=== PATIENT | female | born 2000 | race Caucasian/White ===

== ENCOUNTER 2019-02-15 13:11 | Emergency (ER) | payer OTHER ==
[~2019-02-15] VITALS: Ht 147.3 cm; Wt 50.8 kg
[2019-02-15] MEDS ORDERED: prenata (13:18)
[2019-02-15 15:16] LABS: ALBUMIN 3.6 GM/DL (3.2-5.2); ALT/SGPT 14 U/L (12-78); BILIRUBIN,TOTAL 0.9 MG/DL (0.2-1.0); BLOOD UREA NITROGEN 5 MG/DL (7-18); CALCIUM LEVEL 9.2 MG/DL (8.5-10.1); CARBON DIOXIDE LEVEL 24 MEQ/L (21-32); CHLORIDE LEVEL 105 MEQ/L (98-107); CREATININE FOR GFR 0.49 MG/DL (0.55-1.30); GLUCOSE, FASTING 79 MG/DL (70-100); POTASSIUM SERUM 3.6 MEQ/L (3.5-5.1); SODIUM LEVEL 138 MEQ/L (136-145); TOTAL PROTEIN 7.1 GM/DL (6.4-8.2)
--- NOTE | 2019-02-15 16:38 | REP ---
RENAL AND BLADDER ULTRASOUND: Real-time sonographic evaluation of the kidneys is performed. The kidneys are normal in size and echotexture, right kidney measuring 10.2 x 4.7 x 3.3 cm and left kidney 10.3 x 4.3 x 5.1 cm. There is no hydronephrosis or nephrolithiasis bilaterally. Urinary bladder is mildly distended with no gross abnormality. Ureteral jets could not be visualized with Doppler color evaluation. IMPRESSION: No hydronephrosis or nephrolithiasis identified. Electronically Signed by Reji Berger MD 02/16/2019 12:14 A
[2019-02-15] MEDS ORDERED: KEFL500C17 PO (16:54)
[2019-02-15 16:57] VITALS: BP 113/55
== END 2019-02-15 17:24 | disposition home or self-care (01) ==
LOC: M ED 13:11
DX: O23.42 Unspecified infection of urinary tract in pregnancy, second trimester (principal); Z3A.16 16 weeks gestation of pregnancy

== ENCOUNTER 2019-08-01 04:44 | Inpatient (IN) | payer OTHER ==
[~2019-08-01] VITALS: Ht 149.9 cm; Wt 62.6 kg
[2019-08-01] VITALS (21 sets, daily range): BP systolic 100–144; BP diastolic 52–85
[~2019-08-01 04:44] MED LIST: KEFL500C17 PO; prenata
[2019-08-01] MEDS ORDERED: FERR325T3 PO (05:16)
[2019-08-01] MEDS ORDERED: LACTATED RINGER'S 1000 ML IV STA (05:59)
[2019-08-01] MEDS ORDERED: BUTORPHANOL 2 MG/ML INJ (J0595) IV PRN (06:00)
[2019-08-01] MEDS ORDERED: PROMETHAZINE INJ 25 MG/ML VIAL (J2550) IV ONE ×2 (06:00→11:45)
[2019-08-01] MEDS ORDERED: MOM 30ML SUSPENSION UDC PO PRN (06:00)
[2019-08-01] MEDS ORDERED: SIMETHICONE 80 MG CHEW TAB PO PRN (06:00)
--- NOTE | 2019-08-01 06:16 | HPEPDOC ---
Obstetrical History & Physical General Date of Admission Aug 01, 2019 at 05:55 History of Present Illness Patient is a 19yo female at 40.3wks by LMP c/w 1st trimester US. C/o contra ctions q2-5minutes since midnight. No leakage of fluid. No bleeding. Good movement. Received RhoGam timely for Rh negative status. Chief Complaint: Contractions, term Information Provided By: Patient Care Care: Good Care Dating Final EDC: Jul 29, 2019 Final EDC by: LMP LMP: October 22, 2018 Antepartum Course Height (inches): 58 Pre- weight (lbs.): 105 Admission Weight (lbs.): 136.6 Change in Weight (lbs.): 31.6 Past Medical History Past Obstetrical History : Past Obstetrical History: [employer] History: No pertinent history Past Medical History Medical History None Surgical History: Denies/None Family History Significant Family History: No pertinent family hx (Dependent daughter) Social History Marital Status: Single Psychosocial History: No pertinent psych hx * Smoker: non-smoker Alcohol: Denies Drugs: denies Abuse Violence Screening Have you been hit/kicked/slapp: No Have you been sexually assault: No Imunizations Tdap status: current Influenza Status: current Allergies Coded Allergies: No Known Allergies (Unverified , 02/15/19) Medications Scheduled Cephalexin (Keflex) 500 Mg Capsule, 500 MG PO TID Miscellaneous Medications Ferrous Sulfate (Ferrous Sulfate) 325 Mg Tablet.dr, 325 MG PO [prenata] Physical Examination Physical Examination GENERAL: Alert and oriented times three. BREAST: . ABDOMEN: Gravid and non-tender to touch. FETUS: Is vertex (VTX) by sterile vaginal examination (SVE), fetus is EFW of 3500gm by Leopalds. HEART RATE: Regular rate and rhythm. LUNGS: Clear to auscultation (CTA). EXTREMITIES: +1 edema. Pertinent Laboratoy Data Blood Type: O- (Rhogam 05/06/19 given) RBC Antibody Screen: Negative HIV: Negative Hepatitis B: Negative Rapid Plasma Reagin: Nonreactive Varicella: Immune Chlamydia/Gonorrhea: Negative Group B Streptococcus: Negative Glucose Tolerance Test: 82 Anatomy Ultrasound Ultrasound Date: Mar 11, 2019 Placenta Location: Posterior Normal Anatomy: Yes Placenta Previa: No Estimated Weight (grams): 326 Steroid Therapy Steroid Therapy: No Vaginal Examination Dilation: 5 cm Effacement: 80% Station: 0 Cervical Consistency: Soft Cervical Position: Anterior Presentation: Cephalic presentation Position: Vertex (occiput) Assessment Variability: Moderate Accelerations: Positive Decelerations: None Tocometer Frequency: regular, every 1-3 min. Multi-drug resistant Organism: No history of MDRO Assessment/Plan Assessment Patient is a 19yo female at 40.3wks by LMP c/w 1st trimester US. Admit for active labor and expect delivery by . Pain management per patient preference, which was discussed with her. I discussed risks of with patient of failure with section, distress, bleeding, infection, , vaginal or perineal or neighboring organ tear. Currently, fetus is reassuring. GBS is negative, no need for antibiotics. Plan Admit and orient. Veneer Stapler and consent. Diet: clears. Group B Streptococcus (GBS) negative. Labs and intravenous (IV) per unit protocol. Lactated Ringers (LR): Bolus 500 mL, then at 125 mL/hr. Anticipate normal spontaneous delivery (). Pain management per patient desire. SW consult for dependent after delivery. Rosie Crouch MD Aug 01, 2019 06:16
[2019-08-01 06:29] LABS: BASO % 0.2 % (0.0-1.0); EOS # 0.1 10^3/uL (0.0-0.5); EOS % 0.7 % (0.0-3.0); HEMATOCRIT 36.2 % (36.0-47.0); HEMOGLOBIN 11.3 g/dl (12.0-15.5); LYMPH # 1.8 10^3/uL (1.5-5.0); LYMPH % 14.4 % (24.0-44.0); MEAN CORPUSCULAR HEMOGLOBIN 28.1 pg (27.0-33.0); MEAN CORPUSCULAR HGB CONC 31.2 g/dl (32.0-36.5); MONO # 0.7 10^3/uL (0.0-0.8); MONO % 5.6 % (0.0-5.0); NEUTROPHILS # 9.7 10^3/uL (1.5-8.5); NEUTROPHILS % 78.4 % (36.0-66.0); PLATELET COUNT, AUTOMATED 210 10^3/uL (150-450); RED BLOOD COUNT 4.02 10^6/uL (4.00-5.40); WHITE BLOOD COUNT 12.4 10^3/uL (4.0-10.0)
[2019-08-01] MEDS: LR 1,000 ML IV SCH ×2 (07:10→11:08)
--- NOTE | 2019-08-01 08:20 | IPNPDOC ---
Text Note Date of Service The patient was seen on 08/01/19. NOTE accept care: patient is a 19 yo G1 @ 40+3wks gestation admitted early this AM for labor with cervix at 5/80/0 and painful regular contraction. She is currently coping well with her contractions. GBS negative RH neg vitals: normal NAD fht: 135/mod hattie/pos accel/no decel toco: ctx q 3-4mins a/p patient in labor, likely still transitioning to active. Continue with int ermittent monitoring. encourage up an walking. recheck 6-8hrs from last check. augment as needed. Keyanna, VS,Shreebone, I+O VS, Fishbone, I+O Laboratory Tests 08/01/19 06:11 Vital Signs Date Time Temp Pulse Resp B/P (MAP) Pulse Ox O2 Delivery O2 Flow Rate FiO2 08/01/19 07:13 98.1 74 18 137/83 (101) 98 Room Air JOE AL DO Aug 01, 2019 08:20
[2019-08-01] MEDS ORDERED: NALBUPHINE HCL 10 MG/ML AMP (J2300) IM ONE (11:45)
[2019-08-01] MEDS ORDERED: NALBUPHINE HCL 10 MG/ML AMP (J2300) IV ONE ×2 (11:45→12:15)
[2019-08-01] MEDS ORDERED: FENTANYL 2MCG/ML ROPIVACAINE 0.2% IN 0.9% NACL 100ML IVBAG As Ordered ONE (17:42)
[2019-08-01] MEDS ORDERED: ePHEDrine SULFATE 25 MG/5 ML(5MG/ML) SYRINGE IV PRN (19:00)
[2019-08-01] MEDS ORDERED: EPIDURAL/PCA KEYS XX PRN (19:00)
[2019-08-01] MEDS ORDERED: REFRIGERATOR IV KEYS XX PRN (19:00)
[2019-08-01] MEDS ORDERED: ONDANSETRON 4MG/2ML VIAL (J2405) IV PRN (19:00)
[2019-08-01] MEDS ORDERED: EPIDURAL COMMENT XX SCH (19:00)
[2019-08-01] MEDS ORDERED: NALOXONE INJ 0.4 MG/1 ML VIAL (J2310) IV PRN (19:00)
[2019-08-01] MEDS ORDERED: FENTANYL/ROPIVACAINE/NACL BAG 100 ML EPIDURAL SCH (19:00)
[2019-08-01] MEDS ORDERED: diphenhydrAMINE INJ 50MG/ML VIAL (J1200) IV PRN (19:00)
[2019-08-01] MEDS ORDERED: OXYTOCIN 30 UNITS IN 0.9% NaCl 500ML IV BAG (J2590) As Ordered ONE (19:54)
--- NOTE | 2019-08-01 22:27 | DNPDOC ---
[facility] Delivery Note Delivery Note DATE OF DELIVERY: 08/01/2019 PREDELIVERY DIAGNOSIS: 40+3/7 weeks' gestation and labor. POST DELIVERY DIAGNOSIS: () PROCEDURE: Spontaneous vaginal delivery QUALITY ASSURANCE MANAGER: Dr. Jassi Briceño ANESTHESIA: epidural ESTIMATED BLOOD LOSS: 250mL. FINDINGS: 3200 gm, female , Score 8/9, nuchal cord x2, Left compound hand.. DELIVERY SUMMARY: With good maternal effort, baby delivered OA, restituted LOT. Double nuchal cord reduced. Anterior shoulder delivered, left compound hand delivered with posterior shoulder. Body followed with ease. Baby placed on maternal abdomen. Cord allowed to stop pulsating. Cord clamped x 2 and cut by FOB. Pitocin bolus started. Cord blood collected per routine. Placenta delivered spontaneously. Fundus massaged firmed. Inspection revealed 1st degree midline laceration and right vaginal tear repaired with 3-0 vicryl interrupted stitch. EBL 250cc. baby and mother bonding when I left the room. DO SERVANDO Briceño LUAT N. DO Aug 01, 2019 22:27
[2019-08-01] MEDS ORDERED: OXYTOCIN DRIP 30 UNITS in IV 1 EA IV SCH (23:13)
[2019-08-01] MEDS ORDERED: RHOGAM 300 MCG (1500 IU) INJ (J2790) IM SCH (23:15)
[2019-08-01] MEDS ORDERED: DOCUSATE SODIUM 100 MG CAP PO PRN (23:15)
[2019-08-01] MEDS ORDERED: IBUPROFEN 800 MG TAB PO PRN (23:15)
[2019-08-01] MEDS ORDERED: MEASLES,MUMPS,RUBELLA VACCINE INJ (MMR-II) (90707) SC SCH (23:15)
[2019-08-01] MEDS ORDERED: DIBUCAINE 1% OINTMENT 30GM TOP PRN (23:15)
[2019-08-01] MEDS ORDERED: ACETAMINOPHEN TAB 650MG DOSE (2X325MG) PO PRN (23:15)
[2019-08-02 00:35] VITALS: BP 108/57
[2019-08-02 05:47] VITALS: BP 106/58
--- NOTE | 2019-08-02 07:04 | IPNPDOC ---
Text Note Date of Service The patient was seen on 08/02/19. NOTE Patient is a 19 yo S/P PPD #1. Patient without concerns. She is ambulating, urinating, tolerating po without problem. She is planning to breast feed. plans to use OCP for contraceptive. Vitals: normal NAD abd: nd, soft, nt, fundus at U-1, firm le: no edema/erythema/tenderness /p ppd #1, doing well. encourage ambulating and breast feeding. contraceptive counseling. anticipate d/c home on ppd #2. VS,Fishbone, I+O VS, Fishbone, I+O Vital Signs Date Time Temp Pulse Resp B/P (MAP) Pulse Ox O2 Delivery O2 Flow Rate FiO2 08/02/19 05:47 99.0 67 17 106/58 (74) 96 Room Air I&O- Last 24 Hours up to 6 AM 08/02/19 06:00 Intake Total 4599 ml Output Total 2100 ml Balance 2499 ml JOE AL DO Aug 02, 2019 07:04
[2019-08-02] MEDS: PRENATAL VITAMINS CHEWABLE TABLET PO SCH (07:57)
[2019-08-02 17:54] VITALS: BP 112/66
[2019-08-03 06:00] VITALS: BP 105/61
[2019-08-03] MEDS: PRENATAL VITAMINS CHEWABLE TABLET PO SCH (08:27)
--- NOTE | 2019-08-03 09:58 | IPNPDOC ---
Progress Note Date of Service: Aug 03, 2019 Day#: 2 Progress Note PPD 2 SUBJECT: Caty is a 19yo [id number] s/p uncomplicated at 40w3d, doing well day # 2. She has been ambulating, voiding spontaneously without issue and tolerating regular diet. Breast feeding without issue. Reports lochia is like a normal period. No f/c/n/v/CP/SOB. OBJECTIVE: VITAL SIGNS: Within normal limits, afebrile. Alert and oriented times three. Abdomen: Fundus firm at U-2. Soft, NTTP. Extremities: no edema of BLE ASSESSMENT: Caty is a 19yo [id number] s/p uncomplicated at 40w3d, doing well day # 2. Vitals within normal limits, afebrile, hemodynamically stable with no evidence of infection. PLAN: 1. Discharge to home today. 2. Tylenol and Motrin for pain. 3. Encourage breast feeding and ambulation. 4. Minipill for contraception 5. Routine PP visit in 6 weeks in clinic. 6. Discussed return precautions Dr. Dacia Hernandez MD VS, I&O, 24H, Fishbone Vital Signs/I&O Vital Signs Date Time Temp Pulse Resp B/P (MAP) Pulse Ox O2 Delivery O2 Flow Rate FiO2 08/03/19 06:00 98.0 54 16 105/61 (76) 99 Room Air Dacia Hernandez MD Aug 03, 2019 09:58
[2019-08-03] MEDS ORDERED: ACET1TAB55 PO (10:00)
[2019-08-03] MEDS ORDERED: IBUP80TA PO (10:00)
[2019-08-03] MEDS ORDERED: DIBU10OI TOP (10:00)
--- NOTE | 2019-08-03 10:03 | DS.PDOC ---
Discharge Summary General Date of Admission Aug 01, 2019 at 05:55 Date of Discharge Aug 03, 2019 Attending Physician: JOE AL DO Discharge Summary PROCEDURES PERFORMED DURING STAY: spontaneous vaginal delivery ADMITTING DIAGNOSES: 1. active labor at term DISCHARGE DIAGNOSES: 1. active labor at term, delivered COMPLICATIONS/CHIEF COMPLAINT: Labor Check. HISTORY OF PRESENT ILLNESS/HOSPITAL COURSE: Caty is a 19yo [id number] s/p uncomplicated at 40w3d, doing well day # 2. She had a benign course. At time of discharge, vitals are within normal limits, she is afebrile, hemodynamically stable with no evidence of infection. DISCHARGE MEDICATIONS: Please see below. ALLERGIES: Please see below. PHYSICAL EXAMINATION ON DISCHARGE: VITAL SIGNS: Within normal limits, afebrile. Alert and oriented times three. Abdomen: Fundus firm at U-2. Soft, NTTP. Extremities: no edema of BLE LABORATORY DATA: Please see below. ACTIVITY: As tolerated, vaginal rest 6 weeks and no heavy lifting DIET: regular DISPOSITION: Home DISCHARGE PLAN/INSTRUCTIONS: 1. Discharge to home today. 2. Tylenol and Motrin for pain. 3. Encourage breast feeding and ambulation. 4. Minipill for contraception 5. Routine PP visit in 6 weeks in clinic. 6. Discussed return precautions DISCHARGE CONDITION: Stable TIME SPENT ON DISCHARGE: Greater than [address] Dacia Hernandez MD Vital Signs/I&Os Vital Signs Date Time Temp Pulse Resp B/P (MAP) Pulse Ox O2 Delivery O2 Flow Rate FiO2 08/03/19 06:00 98.0 54 16 105/61 (76) 99 Room Air Discharge Medications Scheduled Cephalexin (Keflex) 500 Mg Capsule, 500 MG PO TID Scheduled PRN Acetaminophen (Acetaminophen) 325 Mg Tablet, 650 MG PO Q4HP PRN for fever Dibucaine (Dibucaine) 28 Gm Oint...g., 0 DOSE TOP Q4HP PRN for PAIN Ibuprofen (Ibuprofen) 800 Mg Tablet, 800 MG PO Q8HP PRN for pain Miscellaneous Medications Ferrous Sulfate (Ferrous Sulfate) 325 Mg Tablet.dr 325 MG PO, (Reported) [prenata] , (Reported) Allergies Coded Allergies: No Known Allergies (Unverified , 02/15/19) Dacia Hernandez MD Aug 03, 2019 10:03
== END 2019-08-03 10:00 | disposition home or self-care (01) | DRG 807 ==
LOC: M LDO 04:44 → M LDI 05:55 → M OBS 08-02 00:21
PROVIDERS: ADMIT Obstetrics & Gynecology; ATTEND Obstetrics & Gynecology
PROC: 10E0XZZ Delivery of Products of Conception, External Approach (ICD-10-PCS; principal; 2019-08-01)
PROC: 0HQ9XZZ Repair Perineum Skin, External Approach (ICD-10-PCS; 2019-08-01)
DX: O48.0 Post-term pregnancy (principal); Z37.0 Single live birth; Z3A.40 40 weeks gestation of pregnancy; O32.6XX0 Maternal care for compound presentation, not applicable or unspecified; O69.81X0 Labor and delivery complicated by cord around neck, without compression, not applicable or unspecified; O70.0 First degree perineal laceration during delivery